=== PATIENT | male | born 1975 | race Caucasian/White ===

== ENCOUNTER 2020-12-30 15:12 | Emergency (ER) | payer OTHER, SELFPAY ==
--- NOTE | ~2020-12-30 | CT_ITS ---
EXAMINATION: CT abdomen pelvis wo con DATE: 12/30/2020 18:35 INDICATION: Left flank pain starting today TECHNIQUE: Computed tomography (CT) of the abdomen and pelvis was performed without intravenous contr ast. Automated exposure control and iterative reconstruction technique were employed. Exam dose: 131 2.56 mGy-cm total exam DLP. COMPARISON: None. FINDINGS: The lung bases are clear. Normal heart size. No pericardial or pleural effusion. Gastric band device. Distal esophageal wall thickening, likely due to esophagitis. There is evidence of sludge and/or stones in the dependent aspect of the gallbladder. No gallbladder wall thickening or pericholecystic fluid or fat stranding is evident. No hepatic, splenic, pancreatic space-occupying mass lesion is evident. No right adrenal mass lesion is detected. There is an approximately 12 mm left adrenal mass, most likely an adrenal adenoma if the re is no history of cancer. No right renal mass lesion or right urinary tract calculus. No left renal mass lesion is evident but there is mild left hydroureteronephrosis due to an approxima tely 3.7 mm proximal left ureteral calculus. There is mild left perinephric stranding. No other urina ry tract calculus is evident. The urinary bladder is unremarkable. There are prostate calcifications. Small right inguinal fat-containing hernia. Small fat-containing umbilical hernia. Normal appendix. Occasional colonic diverticula; no evidence of diverticulitis. IMPRESSION: 3.7 mm proximal left ureteral calculus, mild left hydronephrosis Gallstones and/or sludge Probable esophagitis Diverticulosis of the colon; no CT evidence of diverticulitis 12 mm probable left adrenal adenoma Reviewed, dictated and finalized at [facility]. Reviewed, dictated and finalized at [facility].
[2020-12-30 15:15] VITALS: BP 149/106; PULSE 66; RESP 20; TEMP 36.5; O2SAT 98
[2020-12-30 16:01] LABS: Anion Gap 9 mmol/L (8-16); Blood Urea Nitrogen 10 mg/dL (9-20); Calcium 9.4 mg/dL (8.4-10.2); Carbon Dioxide 28 mmol/L (22-30); Chloride 101 mmol/L (98-107); Estimated CRCL calculation 160 ml/min; Estimated Glomerular Filt Rate > 60; Glucose 91 mg/dL (65-110); Sodium 138 mmol/L (137-145)
[2020-12-30 16:04] LABS: Basophils Absolute Auto 0.1 K/mm3 (0.0-0.1); Eosinophils Absolute Auto 0.3 K/mm3 (0-0.3); Eosinophils Percent Auto 3.2 % (0-4.4); Hematocrit 44.4 % (42.0-52.0); Hemoglobin 14.6 g/dL (14.0-18.0); Immature Granulocyte Absolute 0.03 K/mm3 (0.00-0.031); Immature Granulocyte Percent A 0.3 % (0-0.5); Lymphocytes Absolute Auto 2.75 K/mm3 (0.9-3.2); Lymphocytes Percent Auto 27.5 % (18.3-44.2); Mean Corpuscular HGB Conc 32.9 g/dl (32-36); Mean Corpuscular Hemoglobin 29.4 pg (26-34); Mean Corpuscular Volume 89.3 fl (80-100); Mean Platelet Volume 11.3 fl (7.4-10.4); Monocytes Absolute Auto 1.1 K/mm3 (0.1-0.6); Monocytes Percent Auto 10.6 % (2.6-8.5); Neutrophils Absolute Auto 5.7 K/mm3 (1.3-6.7); Neutrophils Percent Auto 57.4 % (45.5-73.1); Platelet Count Result 284 k/mm3 (150-375); Red Blood Count 4.97 M/mm3 (4.6-6.20); Red Cell Distribution Width 13.6 % (11.5-14.5)
[2020-12-30] MEDS: SODIUM CHLORIDE 0.9% IV 1,000 ML 999 ML IV CONT (18:49)
[2020-12-30] MEDS: KETOROLAC 30 MG/ML VIAL (*BKC) IV PUSH (18:53)
[2020-12-30 18:54] LABS: Add Urine Microscopic? YES; Appearance Urine Cloudy (Clear); Bilirubin Urine Negative (Negative); Blood Urine 3+ (Negative); Color Urine Yellow (Yellow); Glucose Urine UA Negative (Negative); Ketones Urine Negative (Negative); Leukocyte Esterase Ur Negative LEU/UL (Negative); Nitrate Urine Negative (Negative); Protein Urine 1+ mg/dL (Negative); RBC Urine >75 /hpf (0-2); Specific Grav Ur 1.018 (1.001-1.035); Urobilinogen Urine Negative mg/dL (<2.0); WBC Urine 0-3 /hpf
[2020-12-30 18:55] VITALS: BP 136/92; PULSE 69; RESP 16
--- NOTE | 2020-12-30 19:00 | ED.GENADULT ---
HPI - General Adult General Chief complaint: Abdominal Pain Stated complaint: ABD PAIN X 1HOUR Time Seen by Provider: 12/30/20 18:11 History of Present Illness HPI narrative: Patient is a 45-year-old male who presents ER with sudden onset abdominal pain. Left-sided. Left upper quadrant. No radiation. Does have left flank discomfort as well. Associated with bloody urine afterwards. Pain waxes and wanes in intensity. Of note patient reports he has been having 2-3 loose stools a day for the last 2 to 3 days. No fevers or chills or sweats. No nausea or vomiting. Has not taken any pain medication. No history of kidney stone. No history of diverticulitis. Related Data Allergies Allergy/AdvReac Type Severity Reaction Status Date / Time No Known Allergies Allergy Verified 12/30/20 18:38 Review of Systems Review of Systems: All systems reviewed & are unremarkable except as noted in HPI and below Constitutional: Constitutional: Denies chills, Denies fever(s) and Denies weakness ENT: Denies nasal congestion and Denies sore throat Cardiovascular: Cardiovascular: Denies chest pain, Denies rapid heart rate and Denies radiating jaw, neck or arm pain Respiratory: Respiratory: Denies cough and Denies dyspnea Gastrointestinal: Gastrointestinal: Reports abdominal pain, Denies diarrhea, Denies nausea and Denies vomiting Genitourinary: Genitourinary: Reports hematuria, Denies dysuria and Denies testicular pain PMF Past Medical History Medical History (Updated 12/30/20 @ 22:01 by Ángel Baer MD) Essential (primary) hypertension Surgical History Surgical History (Updated 07/22/20 @ 15:04 by Herson Leon MD Celine) LAP-BAND surgery status 2010 at [place], [place] Social History Social History (Updated 07/22/20 @ 14:20 by Seema Farrell) Smoking status: Never smoker Alcohol intake: never Substance use: never Gender identity (if verbalized by the patient): Male Exam Narrative: GENERAL: Well-appearing, obese, and in no acute distress. HEAD: Normocephalic, atraumatic. EYES: PERRL and EOMI. ENT: Mucous membranes moist. CHEST: Clear to auscultation. No respiratory distress. HEART: Regular rate and rhythm. Normal peripheral pulses. ABDOMEN: Soft, nontender, nondistended. No CVA tenderness. Back: No midline tenderness on exam. No reproducible paraspinal muscular tenderness in the thoracic or lumbar spine. EXTREMITIES: Normal range of motion. No edema. SKIN: Warm, dry, no rash. NEURO: Alert and oriented x3. Course Course Emergency Course: Pain improved. Informed of results. Discharge home. Vital Signs Vital signs: Vital Signs Temperature 97.7 F 12/30/20 15:15 Pulse Rate 66 12/30/20 15:15 Respiratory Rate 20 12/30/20 15:15 Blood Pressure 149/106 H 12/30/20 15:15 Pulse Oximetry 98 12/30/20 15:15 Temperature 97.7 F 12/30/20 15:15 Pulse Rate 69 12/30/20 18:55 Respiratory Rate 16 12/30/20 18:55 Blood Pressure 136/92 H 12/30/20 18:55 Pulse Oximetry 98 12/30/20 15:15 Medical Decision Making Vital Signs Vital Signs: Vital Signs Temperature 97.7 F 12/30/20 15:15 Pulse Rate 66 12/30/20 15:15 Respiratory Rate 20 12/30/20 15:15 Blood Pressure 149/106 H 12/30/20 15:15 Pulse Oximetry 98 12/30/20 15:15 Temperature 97.7 F 12/30/20 15:15 Pulse Rate 69 12/30/20 18:55 Respiratory Rate 16 12/30/20 18:55 Blood Pressure 136/92 H 12/30/20 18:55 Pulse Oximetry 98 12/30/20 15:15 Lab Data Result diagrams: 12/30/20 15:25 12/30/20 15:25 Labs: Lab Results 12/30/20 12/30/20 12/30/20 Range/Units 15:25 15:25 17:49 WBC 10.0 (4.5-10.0) K/mm3 RBC 4.97 (4.6-6.20) M/mm3 Hgb 14.6 (14.0-18.0) g/dL Hct 44.4 (42.0-52.0) % MCV 89.3 (80-100) fl MCH 29.4 (26-34) pg MCHC 32.9 (32-36) g/dl RDW 13.6 (11.5-14.5) % Plt Count 284 (150-375) k/mm3 MPV 11.3 H (7.4-
[2020-12-30 22:13] VITALS: BP 143/106; PULSE 68; RESP 16; O2SAT 95
== END 2020-12-30 22:13 | disposition home or self-care (01) ==
PROVIDERS: Emergency Medicine; Emergency Provider Emergency Medicine; PCP Nurse Practitioner
DX: N13.2 Hydronephrosis with renal and ureteral calculous obstruction (principal); I10 Essential (primary) hypertension; K57.90 Diverticulosis of intestine, part unspecified, without perforation or abscess without bleeding; R93.3 Abnormal findings on diagnostic imaging of other parts of digestive tract; R93.422 Abnormal radiologic findings on diagnostic imaging of left kidney
CPT/HCPCS: 36415; 74176; 80048; 81001; 85025; 96361; 96374; 99284; J1885; J7030

== ENCOUNTER 2022-07-10 08:44 | Emergency (ER) | payer OTHER, SELFPAY ==
--- NOTE | ~2022-07-10 | XR_ITS ---
XR shoulder LT min 2V 07/10/2022 09:36 Indication: Left shoulder pain Procedure: 4 views left shoulder Comparison: No prior studies for comparison. Findings: No fracture, subluxation or dislocation. No significant joint effusion. No foreign bodies. No significant soft tissue abnormality. Impression: 1: No acute bone or joint abnormality. Reviewed, dictated and finalized at [facility]. [employer] OPERATIONS ASSOCIATE Impression: 1: No acute bone or joint abnormality.
--- NOTE | ~2022-07-10 | XR_ITS ---
[id number] 07/10/2022 09:36 Indication: Neck pain Procedure: 5 views of the cervical spine Comparison: No prior studies for comparison. Findings: Straightening of cervical lordosis. Vertebral body heights and disc spaces are maintained. No prevertebral soft tissue swelling. There is mild uncinate degenerative change. Lung apices are nor mal. Odontoid process is normal. No acute fracture or traumatic malalignment. Impression: 1: No acute abnormality of the cervical spine. Reviewed, dictated and finalized at [facility]. CAL REVIEW SPECIALIST Impression: 1: No acute abnormality of the cervical spine.
[2022-07-10 08:59] VITALS: BP 143/97; PULSE 73; RESP 16; TEMP 36.1; O2SAT 99
--- NOTE | 2022-07-10 09:12 | ED.EXTPRO ---
HPI - Extremity Problem General Chief complaint: Extremity Problem,Nontraumatic Stated complaint: lt side pinch nerve in shoulder Time Seen by Provider: 07/10/22 09:12 Source: patient Mode of arrival: ambulatory Limitations: no limitations History of Present Illness HPI Narrative: 46 yo M presents with c/o pain to L shoulder for the past several days. States he has had problems with neck and L shoulder for about 15 years. Use to see a chiropractor but stopped going. Has a PCP but never told his PCP about pain. Has not had any imaging. Denies injury. Taking ibuprofen for pain. Has noticed over the past few days decrease in strength and ROM. 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 Feels at times he has to use his R arm to lift his L arm. Has not called his PCP for appt. All systems reviewed and negative except as noted above. Related Data Allergies Allergy/AdvReac Type Severity Reaction Status Date / Time No Known Allergies Allergy Verified 12/30/20 18:38 Review of Systems Review of Systems: CONSTITUTIONAL: Denies fever, chills, or sweats. EYES: Denies visual changes, redness, or discharge. ENT: Denies rhinorrhea, congestion, sore throat, or otalgia. CARDIOVASCULAR: Denies chest pain, palpitations, or edema. RESPIRATORY: Denies cough or dyspnea. GASTROINTESTINAL: Denies abdominal pain, nausea, vomiting, or diarrhea. GENITOURINARY: Denies dysuria or hematuria. SKIN: Denies rash or itching. MUSCULOSKELETAL: Reports pain to left shoulder NEUROLOGIC: Denies headache, numbness, or weakness. PSYCHIATRIC: Denies anxiety or depression. All other systems reviewed are negative, except as documented in HPI. [facility] Past Medical History Medical History (Updated 07/10/22 @ 10:02 by Vilma Lujan NP) Essential (primary) hypertension Surgical History Surgical History (Updated 07/22/20 @ 15:04 by Herson Leon MD Celine) LAP-BAND surgery status 2010 at [place], [place] Social History Social History (Updated 07/22/20 @ 14:20 by Seema Farrell) Smoking status: Never smoker Alcohol intake: never Substance use: never Gender identity (if verbalized by the patient): Male Comments At time of signature, agree with nursing past medical, surgical, social and family history. There is no relevant family history pertinent to the presenting complaint. Exam Narrative: GENERAL: This is a well-nourished, well-developed patient, in no apparent distress. HEAD: normocephalic, atraumatic. EYES: PERRL. Sclera clear/white. Vision is grossly intact. EARS: External ears normal NOSE: External nose normal NECK: Neck supple, non-tender without lymphadenopathy, masses or thyromegaly. CARDIOVASCULAR: Regular rate and rhythm without murmurs, gallops, or rubs. RESPIRATORY: Clear to auscultation. Breath sounds equal bilaterally. No wheezes, rales, or rhonchi. SKIN: warm, Dry, intact with no suspicious lesions or rash, good texture and turgor. NEURO: awake, alert, and oriented to person, place and time. There were no obvious focal neurologic abnormalities. EXTREMITIES: Tenderness to L shoulder at AC joint. able to lift to approx. 90 degrees. Cannot lift over head. strength 4/5. radial pulse 2+ BACK: Nontender without deformity. Course Course Level of Care: Express Care Visit Vital Signs Vital signs: Vital Signs Temperature 36.1 C L 07/10/22 08:59 Pulse Rate 73 07/10/22 08:59 Respiratory Rate 16 07/10/22 08:59 Blood Pressure 143/97 H 07/10/22 08:59 Pulse Oximetry 99 07/10/22 08:59 Temperature 36.1 C L 07/10/22 08:59 Pulse Rate 73 07/10/22 08:59 Respiratory Rate 16 07/10/22 08:59 Blood Pressure 143/97 H 07/10/22 08:59 Pulse Oximetry 99 07/10/22 08:59 Reviewed MDM - Extremity (Nontraumatic) MDM Narrative Medical decision making narrative: Patient is aware of diagnosis, understands and agrees to treatment plan. Anticipatory guidance given. Patient agrees to follow-up
[2022-07-10] MEDS: predniSONE 20 MG TABLET 60 MG PO (09:23)
[2022-07-10] MEDS: KETOROLAC (*BKC) 60 MG/2 ML VIAL IM (09:24)
== END 2022-07-10 10:20 | disposition home or self-care (01) ==
PROVIDERS: Emergency Provider Nurse Practitioner Family
DX: M25.512 Pain in left shoulder (principal); I10 Essential (primary) hypertension
CPT/HCPCS: 72040; 73030; 96372; 99214; G0463; J1885; J7512

== ENCOUNTER 2023-02-05 08:34 | Outpatient (CLI) | payer OTHER, SELFPAY ==
--- NOTE | 2023-02-09 17:52 | WPDSLEEPSTUD ---
Sleep Study Date of Study: 02/05/23 Ordering Provider: Allison Cooley MD Interpreting Physician: Georgette Caballero DO Sleep Study Type: Split Polysomnogram Height: 1.88 m Weight: 149.685 kg Body Mass Index: 42.3 Neck Circumference (inches): 18.5 [place]: 12 Reason for Sleep Study Needs to re-qualify for PAP Therapy Sleep History The patient is a 47-year-old male with hypertension, seasonal allergies and previously diagnosed sleep apnea that had a sleep study ordered by his airline pilot/first officer to requalify for CPAP. 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 He has been on CPAP for the past 15 years. The patient occasionally awakens from sleep short of breath. He occasionally awakens at night with heartburn, belching or cough. He frequently snores and it is frequently loud enough that others complain. He constantly has trouble sleeping when he has a cold. He occasionally wakes up gasping for air throughout the night. He frequently has breathing problems at night observed by himself or others. He rarely sweats excessively at night. He rarely has heart palpitations or irregular heartbeats during the night. He frequently falls asleep during the day but rarely falls asleep driving. He denies cataplexy. He occasionally has trouble at school or work due to sleepiness. He frequently feels unable to move when waking up or falling asleep. He rarely experiences vivid dreamlike scenes upon awakening or falling asleep. He rarely feels afraid of going to sleep. He occasionally has nightmares occasionally remembers his dreams. He occasionally has thoughts racing through his mind. He occasionally feels sad or depressed. He occasionally has anxiety. He frequently has muscular tension. He denies noticing parts of his body jerk. He denies kicking during the night. He denies having crawling and aching feelings in his legs but rarely has leg pain during the night. He denies grinding his teeth during sleep and denies awakening with morning jaw pain. He is occasionally bothered by pain during the day and occasionally awakened by pain during the night. He occasionally wakes up feeling stiff in the morning. He frequently wakes up with sore or achy muscles. He constantly wakes up with pain in the neck, spine or other joints. He goes to bed at 8:00 p.m. on weekdays and at 10:00 p.m. on the weekends. He is able to fall asleep relatively quickly when he takes melatonin. He wakes up 2-3 times throughout the night to urinate but it can take 1-3 hours to fall back asleep. He wakes up at 5:30 a.m. on weekdays and between 7-8 a.m. on the weekends. He typically gets 7-8 hours of sleep per night. He does not stay in bed after waking up in the morning. He currently lives with his and daughter. He denies consuming any caffeinated beverages within 2 hours of bedtime. He denies engaging in physical exercise before bedtime. He will watch television before asleep. He denies taking naps in the afternoon or the evening. He consumes 2 cups of caffeinated beverage per day. He denies tobacco, alcohol and recreational drug use. 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 Gender identity (if verbalized by the patient): Male Medications Home Medications Medication Instructions Recorded Confirmed Type metoprolol succinate 50 mg 50 mg PO DAILY #30 tabs 07/22/20 12/25/22 Rx tablet,extended release 24 hr ibu
[2023-02-09 18:00] VITALS: BMI 42.3
== END 2023-02-06 07:44 | disposition home or self-care (01) ==
LOC: ANHCSM 08:35
PROVIDERS: PCP Internal Medicine Pulmonary Disease; Visit Provider Internal Medicine Critical Care Medicine
DX: G47.19 Other hypersomnia (principal); G47.33 Obstructive sleep apnea (adult) (pediatric)
CPT/HCPCS: 95811